=== PATIENT | female | born 1975 | race Caucasian/White ===

== ENCOUNTER 2020-08-03 14:21 | Emergency (ER) | payer SELFPAY ==
[~2020-08-03] VITALS: Ht 167.6 cm; Wt 59.9 kg
[~2020-08-03 14:21] MED LIST: BACTRIM DS 8001 TA1 PO; CYMBALTA60 MG PO; MOBIC7.5 MG PO; NEURONTIN300 MG PO; SAVELLA50 MG PO; ULTRAM50 MG PO
== END 2020-08-03 17:03 | disposition home or self-care (01) ==
LOC: ED 14:21
DX: S50.01XA Contusion of right elbow, initial encounter (principal); S60.211A Contusion of right wrist, initial encounter; Z79.899 Other long term (current) drug therapy; W18.39XA Other fall on same level, initial encounter; Y93.89 Activity, other specified; Y92.89 Other specified places as the place of occurrence of the external cause; Y99.8 Other external cause status